=== PATIENT | female | born 1995 | race Asian ===

== ENCOUNTER 2019-01-13 22:04 | Emergency (ER) | payer OTHER ==
--- NOTE | 2019-01-14 00:09 | ED ---
Dizziness - HPI Summary HPI Summary: 23-year-old female presents via EMS of dizziness, lightheadedness, difficulty breathing, and feeling as if her heart was racing. States earlier this evening she was taking and exam and suddenly felt very tired. She finished the test return to her dorm room where she attempted to lay down. States while she was lying down she suddenly felt lightheaded and dizzy like she was spinning, felt a throbbing in her head, was breathing rapidly because she felt as if she could not catch her breath, and felt as if her heart was racing, and became nauseated. States symptoms subsided during her transport via EMS except for continued to feel little dizzy and lightheaded. States she has not been sleeping well recently. Denies visual disturbances, slurred or difficulty speaking, numbness, tingling, or weakness of the arms or legs, chest pain, diaphoresis, abdominal pain, vomiting, or diarrhea. - History Of Current Complaint Chief Complaint: EDDizziness Stated Complaint: HEADACHE PER EMS Time Seen by Provider: 01/13/19 23:29 Hx Obtained From: Patient - Allergies/Home Medications Allergies/Adverse Reactions: Allergies Allergy/AdvReac Type Severity Reaction Status Date / Time No Known Allergies Allergy Verified 01/13/19 22:13 Home Medications: Home Medications Dextroamphetamine/Amphetamine [Adderall Xr 30 mg Capsule] 30 mg PO DAILY [History Confirmed 01/14/19] buPROPion HCl [Wellbutrin Sr] 150 mg PO DAILY 01/14/19 [History Confirmed ] PMH/Surg Hx/FS Hx/Imm Hx Previously Healthy: Yes - Denies significant PMH Psychiatric History: Denies: Hx Anxiety, Hx Panic Disorder - Surgical History Surgical History: None - Immunization History Immunizations Up to Date: Yes Infectious Disease History: No Infectious Disease History: Denies: Traveled Outside the [place] in Last 30 Days - Family History Known Family History: Positive: Non-Contributory - Social History Occupation: Student Lives: Dormitory/Roommates Alcohol Use: None Substance Use Type: Reports: None Smoking Status (MU): Never Smoked Tobacco Review of Systems Negative: Fever, Chills, Skin Diaphoresis Negative: Photophobia, Blurred Vision, Diplopia ENT: Negative Positive: Palpitations. Negative: Chest Pain Positive: Shortness Of Breath. Negative: Cough Positive: Nausea. Negative: Abdominal Pain, Vomiting, Diarrhea Genitourinary: Negative Musculoskeletal: Negative Skin: Negative Positive: Headache. Negative: Weakness, Paresthesia, Numbness, Syncope, Slurred Speech Negative: Anxious, Depressed All Other Systems Reviewed And Are Negative: Yes Physical Exam - Summary Physical Exam Summary: GENERAL APPEARANCE: Well developed, well nourished, alert and cooperative, and appears to be in no acute distress. HEAD: Atraumatic. Normocephalic. EYES: Conjunctiva clear. No drainage. PERRL, EOM intact. Vision is grossly intact. EARS: External auditory canals and tympanic membranes clear, hearing grossly intact. NOSE: No nasal discharge. THROAT: Pharynx normal. No tonsilar inflammation, swelling, exudate, or lesions. Uvula midline. NECK: Neck supple, non-tender without lymphadenopathy. CARDIAC: Normal S1 and S2. No S3, S4 or murmurs. Rhythm is regular. There is no peripheral edema, cyanosis or pallor. Extremities are warm and well perfused. Capillary refill is less than 2 seconds. Peripheral pulses intact. LUNGS: Clear to auscultation without rales, rhonchi, wheezing or diminished breath sounds. ABDOMEN: Positive bowel sounds. Soft, nondistended, nontender. No guarding or rebound. No masses or hepatosplenomegally. MUSKULOSKELETAL: ROM intact to all extremities. No joint erythema or tenderness. Normal muscular development. Normal gait. NEUROLOGICAL: CN II-XII intact. Strength and sensation symmetric and intact throughout. Cerebellar testing normal. SKIN: Skin normal color, texture and turgor with no lesions or eruptions. Triage Information Reviewed: Yes Vital Signs On Initial Exam: Initial Vitals Temp Pulse Resp BP Pulse Ox 98.7 F 115 16 131/90 100 01/13/19 22:07 01/13/19 22:07 01/13/19 22:07 01/13/19 22:07 01/13/19 22:07 Vital Signs Reviewed: Yes Diagnostics - Vital Signs Vital Signs Temp Pulse Resp BP Pulse Ox 01/13/19 23:43 110 125/91 01/13/19 23:42 109 133/89 01/13/19 22:07 98.7 F 115 16 131/90 100 - Laboratory Result Diagrams: 01/14/19 00:46 01/14/19 00:46 Lab Statement: Any lab studies that have been ordered have been reviewed, and results considered in the medical decision making process. - EKG No standard instances Summary of EKG Findings: NSR rate of 95. No BRANDON, ectopy, or T-wave abnormalities. No previous for comparison. Dizzy Course/Dx - Course Course Of Treatment: 23-year-old female presents via EMS of dizziness, lightheadedness, difficulty breathing, and feeling as if her heart was racing. States earlier this evening she was taking and exam and suddenly felt very tired. She finished the test return to her dorm room where she attempted to lay down. States while she was lying down she suddenly felt lightheaded and dizzy like she was spinning, felt a throbbing in her head, was breathing rapidly because she felt as if she could not catch her breath, and felt as if her heart was racing, and became nauseated. States symptoms subsided during her transport via EMS except for continued to feel little dizzy and lightheaded. States she has not been sleeping well recently. Denies visual disturbances, slurred or difficulty speaking, numbness, tingling, or weakness of the arms or legs, chest pain, diaphoresis, abdominal pain, vomiting, or diarrhea. - Diagnoses Differential Diagnosis/HQI/PQRI: Anxiety, Hyperventilation, Hypovolemia, Vasovagal Reaction Provider Diagnoses: Lightheadedness Discharge ED - Sign-Out/Discharge Documenting (check all that apply): Patient Departure - Discharge Plan Condition: Stable Disposition: HOME Patient Education Materials: Lightheadedness (ED) Referrals: [facility] [Primary Care Provider] - Additional Instructions: The EKG and lab work performed in the emergency room today were all normal. Be sure to get plenty of rest. Eat a well-balanced diet and drink plenty of fluids. Follow-up with the [facility] in 3-5 days. Return to the emergency room if you have a severe headache that is not managed with [id number] pain medication, you lose consciousness, have visual disturbances, have slurred or difficulty speaking, develop numbness, tingling, or weakness of the arms or legs, have chest pain, feeling as if her heart is racing or skipping beats, persistent or projectile vomiting, or have any worsening of symptoms. - Billing Disposition and Condition Condition: STABLE Disposition: Home
[2019-01-14 00:52] LABS: ABS Basophils 0.1 10^3/ul (0-0.2); ABS Eosinophils 0.2 10^3/ul (0-0.6); ABS Lymphocytes 1.8 10^3/ul (1.0-4.8); ABS Monocytes 0.4 10^3/ul (0-0.8); ABS Neutrophils 2.8 10^3/ul (1.5-7.7); Eosinophil % 3.9 %; Hematocrit 37 % (35-47); Hemoglobin 12.3 g/dL (12.0-16.0); Lymphocyte % 33.5 %; Mean Corpuscular HGB Conc 33 g/dL (31-36); Mean Corpuscular Hemoglobin 29 pg (27-31); Mean Corpuscular Volume 88 fL (80-97); Mean Platelet Volume 8.4 fL (7.4-10.4); Nucleated Red Blood Cells % 0.1; Platelet Count 231 10^3/uL (150-450); Red Blood Count 4.25 10^6 /uL (3.70-4.87); Red Cell Distribution Width 15 % (10-15); White Blood Count 5.3 10^3/uL (3.5-10.8)
[2019-01-14 01:15] LABS: BUN/Creatinine Ratio 11.8 (8-20); Calcium 9.6 mg/dL (8.6-10.3); EGFR African American 92.1 (>60); EGFR Non-African American 76.1 (>60); Potassium 3.8 mmol/L (3.5-5.0)
[2019-01-14 01:42] LABS: TSH (Thyroid Stimulating Horm) 0.95 mcIU/mL (0.34-5.60)
[2019-01-14 03:01] VITALS: BP 128/83
== END 2019-01-14 02:58 | disposition home or self-care (01) ==
LOC: ED 22:04
DX: R42 Dizziness and giddiness (principal); Z79.899 Other long term (current) drug therapy
CPT/HCPCS: 36415; 80048; 84443; 85025; 93005; 99283